=== PATIENT | female | born 1970 | race Asian ===

== ENCOUNTER 2017-04-01 18:54 | Emergency (ER) | payer BC ==
[~2017-04-01] VITALS: Ht 157.5 cm; Wt 79.8 kg
[2017-04-01 20:23] VITALS: BP 138/101
== END 2017-04-01 22:58 | disposition home or self-care (01) ==
LOC: ED 18:54
DX: R21 Rash and other nonspecific skin eruption (principal)
CPT/HCPCS: J2930